=== PATIENT | male | born 1995 | race Two or more races ===

== ENCOUNTER 2023-05-05 13:24 | Emergency (ER) | payer OTHER ==
[~2023-05-05] VITALS: Ht 162.6 cm; Wt 72.7 kg
[2023-05-05 13:28] VITALS: TEMP 99.2
[2023-05-05] MEDS ORDERED: IBUP-1554 PO (14:22)
[2023-05-05] MEDS ORDERED: CEPH-558 PO (14:22)
[2023-05-05] MEDS ORDERED: ACET-2080 PO (14:22)
[2023-05-05] MEDS ORDERED: DOXY-354 PO (14:25)
[2023-05-05] MEDS ORDERED: IBUPROFEN 600 MG TABLET PO ONE (14:30)
[2023-05-05] MEDS ORDERED: ACETAMINOPHEN/CODEINE 300-30 MG TABLET PO ONE (14:30)
[2023-05-05] MEDS ORDERED: CEPHALEXIN MONOHYDRATE 500 MG CAPSULE PO ONE (14:30)
[2023-05-05 14:33] VITALS: BP 124/86; PULSE 92; RESP 16
== END 2023-05-05 14:36 | disposition home or self-care (01) ==
LOC: EMS 13:24
DX: N45.1 Epididymitis (principal); F17.210 Nicotine dependence, cigarettes, uncomplicated; F10.90 Alcohol use, unspecified, uncomplicated; Y90.9 Presence of alcohol in blood, level not specified
CPT/HCPCS: 76870; 99284; Z7502; Z7610